=== PATIENT | female | born 1950 | race American Indian/Alaskan Native ===

== ENCOUNTER 2018-06-22 07:58 | Outpatient (CLI) | payer MEDICARE ==
[2018-06-22 08:48] LABS: Blood Urea Nitrogen 13 mg/dL (7-17)
== END 2018-06-22 07:59 | disposition home or self-care (01) ==
LOC: CT 07:58
PROVIDERS: ATTEND Surgery Vascular Surgery
DX: I65.23 Occlusion and stenosis of bilateral carotid arteries (principal)
CPT/HCPCS: 36415; 70498; 82565; 84520; Q9967